=== PATIENT | female | born 1990 | race Caucasian/White ===

== ENCOUNTER 2019-02-14 00:07 | Inpatient (IN) | payer BC ==
--- NOTE | 2019-02-14 01:26 | HP ---
General Information - Reason for Visit Contractions - General Information Maternal Age: 28 Grav: 1 Para: 0 SAB: 0 IEA: 0 Estimated Due Date: 03/08/19 Determined By: LMP Maternal Blood Type and Rh: A Positive - Results this Serology/RPR Result: Non-Reactive Rubella Result: Immune HBsAg Result: Negative HIV Result: Negative GBS Culture Result: Positive Past Medical History Delivery History: See Records Delivery History Comment: No previous pregnancies Pertinent Past Medical History: See Records Past Medical History Comment: anxiety, stopped meds with GERD Pertinent Family History: See Records Family History Comment: Hypercholesteremia Breast cancer - Antepartal Records Antepartal Records: Reviewed, Uncomplicated Review of Systems Constitutional: Uncomfortable CV Complaint: No Genitourinary: Bleeding, Leaking Fluid Musculoskeletal: Contractions Exam Allergies/Adverse Reactions: Allergies No Known Allergies Allergy (Verified 02/14/19 00:13) Vital Signs 02/14/19 01:19 Temperature 98.8 F Pulse Rate 97 Respiratory 20 Rate Blood Pressure 117/65 (mmHg) - Measurements Height: 5 ft 9 in Weight: 174 lb Weight in lbs: 174.908466 Body Mass Index (BMI): 25.7 Pre- Weight: 150 lb Weight Gained This : 24 lbs and 0 ozs - Ultrasound/Biophysical Profile Ultrasound Status: Not Done Targeted Exam Findings Cervical Exam: Complete Effacement: 100% Station: +1 Presenting Part: Vertex Membrane Status: Leaking Amniotic Fluid Evaluation: Gross Rupture EFM Findings - External Monitor Findings Baseline Heart Rate: 130 External Monitor Findings: Accelerations Present, No Pattern of Variable or Late Decelerations, Variability Moderate Contractions: Regular, Strong, 45-90 Seconds Contraction Frequency: Q 2-3 min Assessment/Plan - Assessment IUP @ 36+6 weeks gestation in active labor. Gross rupture with clear fluid. GBS status unknown. No evidence acidemia - Obstetrical Risk Factors Obstetrical Risk Factors: GBS Unknown - Plan Plan: Admit - Anticipate Vaginal Delivery Plan Comment: Patient with urge to push upon arrival. - Date/Time of Admission Date of Admission: 02/14/19 Time of Admission: 00:21
--- NOTE | 2019-02-14 01:41 | PROCNOTE ---
[facility] OB: Delivery Note - Delivery A Date of : 02/14/19 Time of : 00:46 [place] Sex: Female - "Alexsanderalecarlos" Score 1 Minute: 8 Score 5 Minutes: 9 Gestational Age in Weeks and Days at Delivery: 36 Weeks and 6 Days Delivery Method: Spontaneous Vaginal Labor: Spontaneous Amniotic Fluid: Clear Estimated Blood Loss: 350 Anesthesia/Analgesia: None Delivered By: Bruce Black - Nursery Level of Nursery: Regular/Bedside - Perineum Perineal Injury: 1st Degree Perineal Repair: By Delivering Practioner - Events Delivery Events of Note: Pitocin Only After Delivery, Precipitous Delivery, Post - Bleeding - Meds Given - Additional Delivery Notes Additional Delivery Notes: Patient called en route to L&D, reporting rupture of membranes approx 2230 with cramping starting soon after. Upon arrival was found to be complete with urge to push. Length of labor 1'51", pushed 24 min. Baby born OA to ROB @ 0046 and delivered to lower maternal abdomen due to short cord. Spontaneous cry, Apgars 8 , 9. Cord doubly clamped and cut by sister of patient once pulsations ceased. Placenta delivered with gentle cord traction @ 0051 in Jesse presentation. Noted to have intact-appearing membranes, 3VC, short cord and some calcifications. Fundus firm but some brisk bleeding noted; Pitocin 10U IM given with good effect. EBL 350ml. Perineal lac repair as above. Baby at breast to initiate . Both mother and baby stable.
[2019-02-14] MEDS ORDERED: Dibucaine 1% 28.35 GM TUBE PR PRN (02:11)
[2019-02-14] MEDS ORDERED: Glycerin ADULT SUPP PR PRN (02:11)
[2019-02-14] MEDS ORDERED: Witch Hazel PAD* JAR TOPICAL PRN (02:11)
[2019-02-14] MEDS ORDERED: Influenza VAC *QUAD* 2019-20* 0.5 ML SYRINGE IM ONE (02:13)
[2019-02-14] MEDS ORDERED: OXYTOCIN* 10 UNITS/ML 1 ML VIAL IM ONE (02:13)
[2019-02-14] MEDS: Ibuprofen TAB* 600 MG PO PRN ×3 (02:24→19:20)
[2019-02-14] MEDS ORDERED: Lidocaine 1% INJ* 10 MG/ML 30 ML SDV ONE (04:25)
[2019-02-14] MEDS: Docusate CAP* 100 MG PO SCH ×3 (07:42→20:33)
[2019-02-14] MEDS: Acetaminophen TAB* 325 MG PO PRN ×2 (07:42→17:08)
[2019-02-15 00:39] LABS: Urine Benzodiazepine Screen None Detected (None Detect); Urine Opiates Screen None Detected (None Detect)
[2019-02-15] MEDS: Acetaminophen TAB* 325 MG PO PRN ×5 (00:50→21:30)
[2019-02-15] MEDS: Ibuprofen TAB* 600 MG PO PRN ×4 (03:15→21:29)
[2019-02-15] MEDS ORDERED: Ferrous Gluconate TAB* 324 MG TAB PO SCH (09:00)
[2019-02-15] MEDS: Docusate CAP* 100 MG PO SCH ×3 (09:13→21:29)
[2019-02-15 10:03] LABS: ABS Basophils 0.1 10^3/ul (0-0.2); ABS Eosinophils 0.2 10^3/ul (0-0.6); ABS Monocytes 0.5 10^3/ul (0-0.8); ABS Neutrophils 5.7 10^3/ul (1.5-7.7); Eosinophil % 2.7 %; Hematocrit 34 % (35-47); Hemoglobin 11.2 g/dL (12.0-16.0); Lymphocyte % 23.4 %; Mean Corpuscular HGB Conc 33 g/dL (31-36); Mean Corpuscular Hemoglobin 32 pg (27-31); Mean Corpuscular Volume 96 fL (80-97); Mean Platelet Volume 9.9 fL (7.4-10.4); Platelet Count 150 10^3/uL (150-450); Red Blood Count 3.52 10^6 /uL (3.70-4.87); Red Cell Distribution Width 13 % (10-15); White Blood Count 8.5 10^3/uL (3.5-10.8)
--- NOTE | 2019-02-15 17:23 | PTEDU ---
Patient Name: ADE SOFIA ADE SOFIA selected video: Never Ever Shake a Baby to view on 02/15/2019 at 5:20:32 PM from [facility] [id number]
[2019-02-16] MEDS: Acetaminophen TAB* 325 MG PO PRN ×2 (02:46→09:03)
[2019-02-16] MEDS: Ibuprofen TAB* 600 MG PO PRN (05:48)
[2019-02-16 08:01] VITALS: BP 111/56
[2019-02-16] MEDS: Docusate CAP* 100 MG PO SCH (09:03)
== END 2019-02-16 12:30 | disposition home or self-care (01) | DRG 560 ==
LOC: MCHOBOUT 00:07 → MCHOB 00:21
PROVIDERS: ADMIT Midwife; ATTEND Midwife
PROC: 10E0XZZ Delivery of Products of Conception, External Approach (ICD-10-PCS; principal; 2019-02-14)
PROC: 0HQ9XZZ Repair Perineum Skin, External Approach (ICD-10-PCS; 2019-02-14)
DX: O60.10X0 Preterm labor with preterm delivery, unspecified trimester, not applicable or unspecified (principal); Z37.0 Single live birth; O99.344 Other mental disorders complicating childbirth; F41.9 Anxiety disorder, unspecified; O70.0 First degree perineal laceration during delivery; Z3A.36 36 weeks gestation of pregnancy
CPT/HCPCS: 36415; 80307; 85025; A9270-GY; J2590

== ENCOUNTER 2021-07-18 18:15 | Inpatient (IN) ==
[2021-07-18] MEDS ORDERED: Buffered Lidocaine 1% SYRIN 1 ml INTRADERM ONE (19:34)
[2021-07-18] MEDS ORDERED: Lactated Ringers 1000 ml BAG 1,000 ML IV ONE (19:34)
[2021-07-18] MEDS ORDERED: Lactated Ringers 1000 ml BAG 1,000 ML IV SCH (20:00)
[2021-07-18 20:07] LABS: Urine Appearance Clear; Urine Bilirubin Negative (Negative); Urine Blood Negative (Negative); Urine Color Yellow; Urine Glucose Negative (Negative); Urine Ketones 1+ (Negative); Urine Nitrite Negative (Negative); Urine Protein Negative (Negative); Urine Specific Gravity 1.021 (1.002-1.030); Urine Urobilinogen Negative (Negative)
[2021-07-18 20:22] LABS: Urine Benzodiazepine Screen None Detected (None Detect); Urine Cannabinoids Screen None Detected (None Detect); Urine Opiates Screen None Detected (None Detect)
[2021-07-19] MEDS ORDERED: Witch Hazel PAD JAR TOPICAL PRN (09:42)
[2021-07-19] MEDS ORDERED: Dibucaine 1% OINT 28.35 GM TUBE PR PRN (09:42)
[2021-07-19] MEDS ORDERED: Oxytocin in LR 20 UNITS/1,000 ML BAG IVPB SCH ×2 (10:00→12:00)
[2021-07-19] MEDS ORDERED: Lactated Ringers 1000 ml BAG 1,000 ML IV SCH (10:00)
[2021-07-19 11:35] LABS: ABS Lymphocytes 1.6 10^3/ul (1.0-4.8); ABS Monocytes 0.6 10^3/ul (0-0.8); ABS Neutrophils 5.6 10^3/ul (1.5-7.7); Eosinophil % 0.6 %; Hematocrit 38 % (35-47); Hemoglobin 12.7 g/dL (12.0-16.0); Lymphocyte % 20.9 %; Mean Corpuscular HGB Conc 33 g/dL (31-36); Mean Corpuscular Hemoglobin 33 pg (27-31); Mean Corpuscular Volume 99 fL (80-97); Platelet Count 137 10^3/uL (150-450); Red Blood Count 3.83 10^6 /uL (3.70-4.87); Red Cell Distribution Width 13 % (10-15); White Blood Count 7.9 10^3/uL (3.5-10.8)
[2021-07-20 06:24] LABS: ABS Basophils 0.1 10^3/ul (0-0.2); ABS Eosinophils 0.1 10^3/ul (0-0.6); ABS Lymphocytes 2.3 10^3/ul (1.0-4.8); ABS Monocytes 0.8 10^3/ul (0-0.8); ABS Neutrophils 10.7 10^3/ul (1.5-7.7); Eosinophil % 0.6 %; Hematocrit 33 % (35-47); Hemoglobin 11.1 g/dL (12.0-16.0); Lymphocyte % 16.6 %; Mean Corpuscular HGB Conc 34 g/dL (31-36); Mean Corpuscular Hemoglobin 33 pg (27-31); Mean Corpuscular Volume 98 fL (80-97); Mean Platelet Volume 9.8 fL (7.4-10.4); Nucleated Red Blood Cells % 0.1; Platelet Count 126 10^3/uL (150-450); Red Blood Count 3.32 10^6 /uL (3.70-4.87); Red Cell Distribution Width 13 % (10-15); White Blood Count 13.9 10^3/uL (3.5-10.8)
[2021-07-21 07:57] VITALS: BP 112/62
== END 2021-07-21 16:46 | disposition home or self-care (01) | DRG 560 ==
LOC: MCHOBOUT 18:15 → MCHOB 19:38
PROVIDERS: ADMIT Midwife; ATTEND Midwife